=== PATIENT | female | born 1950 | race Two or more races ===

== ENCOUNTER 2022-08-17 15:52 | Inpatient (IN) | payer MEDICARE, OTHER, MEDICAID ==
[~2022-08-17] VITALS: Ht 144.8 cm; Wt 46.7 kg
[2022-08-17] MEDS ORDERED: IPRATROPIUM BROM 0.5 MG/2.5ML INH SOL NEB ONE (16:45)
[2022-08-17] MEDS ORDERED: IOHEXOL 350 MG/ML 100ML IJ ONE ×2 (16:45→19:09)
[2022-08-17] MEDS ORDERED: PIPERACILLIN-TAZOB 3.375GM 100 ML IV ONE (16:45)
[2022-08-17] MEDS ORDERED: DexAMETHasone SOD PHOS 10MG/1ML VIAL INJ IV ONE (16:45)
[2022-08-17] MEDS ORDERED: ALBUTEROL SULF 2.5 MG/0.5ML(0.5%) NEB SOLN NEB ONE (16:45)
[2022-08-17 16:48] LABS: Hemoglobin 15.8 g/dL (12.2-16.2)
[2022-08-17 16:51] LABS: Hematocrit 46.4 % (36.0-46.0); Mean Corpuscular Hemoglobin 32.4 pg (28.0-32.0); Mean Corpuscular Volume 95.2 fL (80.0-100.0); Red Blood Cells 4.87 10^6/uL (4.0-5.20); Red Cell Distribution Width 13.9 % (11.8-14.3)
[2022-08-17 17:06] LABS: White Blood Cell 46.7 10^3/uL (4.4-10.8)
[2022-08-17 17:09] LABS: Albumin 2.2 g/dL (3.4-5.0); Basophils % (manual) 0 (0.0-2.0); Blast Cells 0; Calcium 9.1 mg/dL (8.5-10.1); Eosinophils % (manual) 0 (0-7); Magnesium 2.3 mg/dL (1.6-2.6); Metamyelocytes % 0; Myelocytes % 0; Potassium 4.4 mmol/L (3.5-5.1); Promyelocytes % 0; Reactive Lymphocytes 0
[2022-08-17 17:12] LABS: BUN/Creatinine Ratio 36.5 (10.0-20.0); Bilirubin, Total 0.2 mg/dL (0.2-1.0); Total Protein 7.8 g/dL (6.4-8.2)
[2022-08-17] MEDS ORDERED: FUROSEMIDE 40 MG/4 ML VIAL IV ONE (17:15)
[2022-08-17] MEDS ORDERED: SODIUM CHLORIDE 0.9% 500 ML IV ONE (17:30)
[2022-08-17 18:32] LABS: Band Neutrophils % (manual) 7; Lymphocytes % (manual) 2 (10.0-50.0); Monocytes % (manual) 3 (0-12)
[2022-08-17 19:15] VITALS: BP 148/97
[2022-08-17 20:18] VITALS: BP 145/61
[2022-08-17 21:19] LABS: INR 1.06 (0.9-1.15); Partial Thromboplastin Time 26.8 sec (24.6-33.4)
[2022-08-17 22:15] VITALS: BP 95/53
[2022-08-17] MEDS ORDERED: ACETAMINOPHEN 325 MG TAB PO PRN (22:30)
[2022-08-17] MEDS ORDERED: HYDROcodone-ACET 5/325MG TAB PO PRN (22:30)
[2022-08-17] MEDS ORDERED: NITROGLYCERIN 0.4 MG SL TAB SL PRN (22:30)
[2022-08-17] MEDS ORDERED: ONDANSETRON HCL 4 MG/2 ML VIAL IV PRN (22:30)
[2022-08-17] MEDS ORDERED: MORPHINE SULFATE INJ 2 MG/ml SYRG IV PRN ×2 (22:30)
[2022-08-17] MEDS ORDERED: DOCUSATE SOD 100 MG CAP PO PRN (22:30)
[2022-08-17] MEDS ORDERED: levoFLOXacin 500MG 100 ML IV SCH (22:32)
[2022-08-18 00:15] VITALS: BP 154/61
[2022-08-18 06:03] LABS: Hematocrit 40.2 % (36.0-46.0); Hemoglobin 13.6 g/dL (12.2-16.2); Mean Corpuscular Hemoglobin 32.2 pg (28.0-32.0); Mean Corpuscular Hgb Conc. 33.9 g/dL (32.0-36.0); Mean Corpuscular Volume 94.9 fL (80.0-100.0); Red Blood Cells 4.23 10^6/uL (4.0-5.20); Red Cell Distribution Width 13.7 % (11.8-14.3)
[2022-08-18 06:35] LABS: Albumin 1.8 g/dL (3.4-5.0); Basophils % (manual) 0 (0.0-2.0); Blast Cells 0; Calcium 8.3 mg/dL (8.5-10.1); Eosinophils % (manual) 0 (0-7); Metamyelocytes % 0; Myelocytes % 0; Potassium 4.1 mmol/L (3.5-5.1); Promyelocytes % 0; Reactive Lymphocytes 0; White Blood Cell 37.8 10^3/uL (4.4-10.8)
[2022-08-18 06:40] LABS: BUN/Creatinine Ratio 37.8 (10.0-20.0); Bilirubin, Total 0.2 mg/dL (0.2-1.0); Total Protein 6.5 g/dL (6.4-8.2)
[2022-08-18 07:59] LABS: Band Neutrophils % (manual) 4; Lymphocytes % (manual) 3 (10.0-50.0); Monocytes % (manual) 4 (0-12)
[2022-08-18] MEDS ORDERED: AMLO1TAB22 PO (09:16)
[2022-08-18] MEDS ORDERED: VENL37.588 PO (09:16)
[2022-08-18] MEDS ORDERED: ALPRAZolam 0.5 MG TAB PO PRN (09:30)
[2022-08-18] MEDS: IPRATROPIUM BROM 0.5 MG/2.5ML INH SOL NEB SCH ×4 (10:19→22:36)
[2022-08-18] MEDS: ALBUTEROL SULF 2.5 MG/0.5ML(0.5%) NEB SOLN NEB SCH ×4 (10:19→22:36)
[2022-08-18] MEDS: FAMOTIDINE (10MG/ML) 2ML VL IV SCH (10:50)
[2022-08-18] MEDS: ENOXAPARIN SOD 40 MG/0.4 ML SYRINGE SC SCH (10:50)
[2022-08-18] MEDS: PIPERACILLIN-TAZOB 3.375GM 100 ML IV SCH ×2 (10:51→18:20)
[2022-08-18] MEDS: ZINC SULFATE 220mg CAP or TAB PO SCH (10:51)
[2022-08-18] MEDS: amLODIPine BESYLATE 5 MG TAB PO SCH (10:51)
[2022-08-18] MEDS: MULTIPLE VITAMIN TAB PO SCH (10:52)
[2022-08-18] MEDS: FOLIC ACID 1 MG TAB PO SCH (10:52)
[2022-08-18] MEDS: VENLAFAXINE HCL 37.5mg XR cap PO SCH (10:52)
[2022-08-18] MEDS: ASCORBIC ACID 500 MG TAB PO SCH ×2 (10:52→23:50)
[2022-08-18] MEDS ORDERED: methylPREDNISolone SOD SUCC 40 MG/ML VL IV ONE (12:00)
[2022-08-18] MEDS ORDERED: AZITHROMYCIN 500MG/ 250ML 250 ML IV ONE (12:45)
[2022-08-18] MEDS ORDERED: GABAPENTIN 300 MG CAP PO SCH (14:00)
[2022-08-18] MEDS ORDERED: levoFLOXacin 250MG 50 ML IV SCH (22:30)
[2022-08-18 22:35] VITALS: BP 135/68
[2022-08-18] MEDS: methylPREDNISolone SOD SUCC 40 MG/ML VL IV SCH (23:53)
[2022-08-19] MEDS: PIPERACILLIN-TAZOB 3.375GM 100 ML IV SCH ×3 (02:43→17:19)
[2022-08-19 05:00] VITALS: BP 138/90
[2022-08-19] MEDS: ALBUTEROL SULF 2.5 MG/0.5ML(0.5%) NEB SOLN NEB SCH ×5 (06:36→22:24)
[2022-08-19] MEDS: IPRATROPIUM BROM 0.5 MG/2.5ML INH SOL NEB SCH ×5 (06:36→22:24)
[2022-08-19] MEDS ORDERED: FLUT1AER17 INH (07:35)
[2022-08-19] MEDS ORDERED: OMEP20TA PO (07:36)
[2022-08-19] MEDS ORDERED: NASAGEL (07:46)
[2022-08-19] MEDS ORDERED: FLUT1SPR21 (07:46)
[2022-08-19] MEDS ORDERED: CEL100T PO (07:46)
[2022-08-19] MEDS ORDERED: LACTCAP35 OR (07:50)
[2022-08-19] MEDS ORDERED: CHOL20007 PO (07:50)
[2022-08-19] MEDS ORDERED: MULT-1018 PO (07:50)
[2022-08-19] MEDS ORDERED: GLUC1500 PO (07:50)
[2022-08-19] MEDS ORDERED: CALC1TAB92 PO (07:50)
[2022-08-19] MEDS ORDERED: LORA-622 PO (07:50)
[2022-08-19] MEDS: FAMOTIDINE (10MG/ML) 2ML VL IV SCH (08:44)
[2022-08-19] MEDS: methylPREDNISolone SOD SUCC 40 MG/ML VL IV SCH ×2 (08:44→22:48)
[2022-08-19] MEDS: AZITHROMYCIN 500MG/ 250ML 250 ML IV SCH (08:48)
[2022-08-19] MEDS: ASCORBIC ACID 500 MG TAB PO SCH ×2 (08:49→22:47)
[2022-08-19] MEDS: ENOXAPARIN SOD 40 MG/0.4 ML SYRINGE SC SCH (08:51)
[2022-08-19] MEDS: FOLIC ACID 1 MG TAB PO SCH (08:51)
[2022-08-19] MEDS: ZINC SULFATE 220mg CAP or TAB PO SCH (08:51)
[2022-08-19] MEDS: MULTIPLE VITAMIN TAB PO SCH (08:52)
[2022-08-19] MEDS: VENLAFAXINE HCL 37.5mg XR cap PO SCH (08:52)
[2022-08-19] MEDS: amLODIPine BESYLATE 5 MG TAB PO SCH (08:52)
[2022-08-19 09:00] VITALS: BP 132/68
[2022-08-19 09:45] LABS: Hematocrit 40.7 % (36.0-46.0); Hemoglobin 13.6 g/dL (12.2-16.2); Mean Corpuscular Hemoglobin 32.1 pg (28.0-32.0); Mean Corpuscular Hgb Conc. 33.6 g/dL (32.0-36.0); Mean Corpuscular Volume 95.6 fL (80.0-100.0); Red Blood Cells 4.25 10^6/uL (4.0-5.20); Red Cell Distribution Width 13.5 % (11.8-14.3)
[2022-08-19 09:49] LABS: White Blood Cell 32.6 10^3/uL (4.4-10.8)
[2022-08-19 09:52] LABS: Basophils % (manual) 0 (0.0-2.0); Blast Cells 0; Eosinophils % (manual) 0 (0-7); Metamyelocytes % 0; Myelocytes % 0; Promyelocytes % 0; Reactive Lymphocytes 0
[2022-08-19 10:11] LABS: Potassium 3.9 mmol/L (3.5-5.1)
[2022-08-19 10:18] LABS: Albumin 1.7 g/dL (3.4-5.0); BUN/Creatinine Ratio 34.9 (10.0-20.0); Bilirubin, Total 0.2 mg/dL (0.2-1.0); Calcium 8.5 mg/dL (8.5-10.1); Total Protein 6.4 g/dL (6.4-8.2)
[2022-08-19 10:58] LABS: Band Neutrophils % (manual) 3; Lymphocytes % (manual) 4 (10.0-50.0); Monocytes % (manual) 4 (0-12)
[2022-08-19 13:00] VITALS: BP 120/67
[2022-08-19 16:42] VITALS: BP 129/73
[2022-08-19 22:00] VITALS: BP 119/60
[2022-08-20] MEDS: PIPERACILLIN-TAZOB 3.375GM 100 ML IV SCH ×3 (02:22→17:31)
[2022-08-20 04:46] VITALS: BP 128/67
[2022-08-20] MEDS: IPRATROPIUM BROM 0.5 MG/2.5ML INH SOL NEB SCH ×5 (07:13→22:10)
[2022-08-20] MEDS: ALBUTEROL SULF 2.5 MG/0.5ML(0.5%) NEB SOLN NEB SCH ×5 (07:13→22:10)
[2022-08-20 09:00] VITALS: BP 119/58
[2022-08-20] MEDS: AZITHROMYCIN 500MG/ 250ML 250 ML IV SCH (09:11)
[2022-08-20] MEDS: FAMOTIDINE (10MG/ML) 2ML VL IV SCH (09:11)
[2022-08-20] MEDS: ZINC SULFATE 220mg CAP or TAB PO SCH (09:11)
[2022-08-20] MEDS: methylPREDNISolone SOD SUCC 40 MG/ML VL IV SCH ×2 (09:11→22:02)
[2022-08-20] MEDS: VENLAFAXINE HCL 37.5mg XR cap PO SCH (09:12)
[2022-08-20] MEDS: FOLIC ACID 1 MG TAB PO SCH (09:12)
[2022-08-20] MEDS: MULTIPLE VITAMIN TAB PO SCH (09:12)
[2022-08-20] MEDS: ASCORBIC ACID 500 MG TAB PO SCH ×2 (09:12→22:02)
[2022-08-20] MEDS: ENOXAPARIN SOD 40 MG/0.4 ML SYRINGE SC SCH (09:12)
[2022-08-20] MEDS: amLODIPine BESYLATE 5 MG TAB PO SCH (09:18)
[2022-08-20 13:00] VITALS: BP 124/71
[2022-08-20 17:00] VITALS: BP 131/63
[2022-08-20 22:00] VITALS: BP 132/70
[2022-08-21] MEDS: PIPERACILLIN-TAZOB 3.375GM 100 ML IV SCH ×3 (02:05→18:05)
[2022-08-21 05:00] VITALS: BP 132/85
[2022-08-21] MEDS: ALBUTEROL SULF 2.5 MG/0.5ML(0.5%) NEB SOLN NEB SCH ×5 (06:31→21:37)
[2022-08-21] MEDS: IPRATROPIUM BROM 0.5 MG/2.5ML INH SOL NEB SCH ×5 (06:31→21:37)
[2022-08-21] MEDS: AZITHROMYCIN 500MG/ 250ML 250 ML IV SCH (07:59)
[2022-08-21 08:00] VITALS: BP_SYST 119; BP_SYST 145; BP_DIAS 58; BP_DIAS 62
[2022-08-21 09:49] LABS: Basophils # (auto) 0 10 ^3/uL (0-0.2); Eosinophils # (auto) 0 10 ^3/uL (0-0.8); Hemoglobin 14.2 g/dL (12.2-16.2); Monocytes # (auto) 0.9 10 ^3/uL (0-1.3)
[2022-08-21 09:50] LABS: Basophils % (auto) 0.1 % (0.0-2.0); Hematocrit 42.1 % (36.0-46.0); Lymphocytes % (auto) 5.3 % (10.0-50.0); Mean Corpuscular Hemoglobin 32.3 pg (28.0-32.0); Mean Corpuscular Hgb Conc. 33.7 g/dL (32.0-36.0); Mean Corpuscular Volume 95.9 fL (80.0-100.0); Monocytes % (auto) 4.9 % (0.0-12.0); Neutrophils # (auto) 16.9 10 ^3/uL (1.6-8.6); Neutrophils % (auto) 89.7 % (37.0-80.0); Red Blood Cells 4.39 10^6/uL (4.0-5.20); Red Cell Distribution Width 13.9 % (11.8-14.3); White Blood Cell 18.9 10^3/uL (4.4-10.8)
[2022-08-21] MEDS: methylPREDNISolone SOD SUCC 40 MG/ML VL IV SCH ×2 (09:58→21:38)
[2022-08-21] MEDS: FAMOTIDINE (10MG/ML) 2ML VL IV SCH (09:58)
[2022-08-21] MEDS: NICOTINE 14 MG/24HR TOPICAL PATCH TD SCH (09:58)
[2022-08-21] MEDS: ENOXAPARIN SOD 40 MG/0.4 ML SYRINGE SC SCH (09:59)
[2022-08-21] MEDS: MULTIPLE VITAMIN TAB PO SCH (09:59)
[2022-08-21] MEDS: ASCORBIC ACID 500 MG TAB PO SCH ×2 (09:59→21:39)
[2022-08-21] MEDS: VENLAFAXINE HCL 37.5mg XR cap PO SCH (09:59)
[2022-08-21] MEDS: FOLIC ACID 1 MG TAB PO SCH (09:59)
[2022-08-21] MEDS: amLODIPine BESYLATE 5 MG TAB PO SCH (10:05)
[2022-08-21] MEDS: ZINC SULFATE 220mg CAP or TAB PO SCH (10:07)
[2022-08-21 10:38] VITALS: BP 142/60
[2022-08-21 10:47] LABS: Calcium 9.2 mg/dL (8.5-10.1); Potassium 4.6 mmol/L (3.5-5.1)
[2022-08-21 10:49] LABS: BUN/Creatinine Ratio 36.8 (10.0-20.0)
[2022-08-21 12:00] VITALS: BP 134/81
[2022-08-21 16:00] VITALS: BP 142/71
[2022-08-21 22:00] VITALS: BP 146/76
[2022-08-22] MEDS: PIPERACILLIN-TAZOB 3.375GM 100 ML IV SCH ×3 (02:36→18:07)
[2022-08-22 05:00] VITALS: BP 138/73
[2022-08-22] MEDS: IPRATROPIUM BROM 0.5 MG/2.5ML INH SOL NEB SCH ×5 (06:10→21:54)
[2022-08-22] MEDS: ALBUTEROL SULF 2.5 MG/0.5ML(0.5%) NEB SOLN NEB SCH ×5 (06:10→21:54)
[2022-08-22] MEDS: AZITHROMYCIN 500MG/ 250ML 250 ML IV SCH (08:32)
[2022-08-22 08:54] VITALS: BP 148/70
[2022-08-22] MEDS: ENOXAPARIN SOD 40 MG/0.4 ML SYRINGE SC SCH (09:43)
[2022-08-22] MEDS: FAMOTIDINE (10MG/ML) 2ML VL IV SCH (09:43)
[2022-08-22] MEDS: MULTIPLE VITAMIN TAB PO SCH (09:43)
[2022-08-22] MEDS: ASCORBIC ACID 500 MG TAB PO SCH ×2 (09:43→22:04)
[2022-08-22] MEDS: methylPREDNISolone SOD SUCC 40 MG/ML VL IV SCH ×2 (09:43→22:04)
[2022-08-22] MEDS: VENLAFAXINE HCL 37.5mg XR cap PO SCH (09:44)
[2022-08-22] MEDS: ZINC SULFATE 220mg CAP or TAB PO SCH (09:44)
[2022-08-22] MEDS: FOLIC ACID 1 MG TAB PO SCH (09:44)
[2022-08-22] MEDS: amLODIPine BESYLATE 5 MG TAB PO SCH (09:52)
[2022-08-22] MEDS: NICOTINE 14 MG/24HR TOPICAL PATCH TD SCH (10:00)
[2022-08-22 13:00] VITALS: BP_SYST 137; BP_SYST 148; BP_DIAS 62; BP_DIAS 70
[2022-08-22 16:37] VITALS: BP 136/68
[2022-08-22 22:00] VITALS: BP 139/73
[2022-08-23] MEDS: PIPERACILLIN-TAZOB 3.375GM 100 ML IV SCH ×3 (02:03→18:21)
[2022-08-23 05:00] VITALS: BP 144/79
[2022-08-23] MEDS: ALBUTEROL SULF 2.5 MG/0.5ML(0.5%) NEB SOLN NEB SCH ×5 (06:23→21:53)
[2022-08-23] MEDS: IPRATROPIUM BROM 0.5 MG/2.5ML INH SOL NEB SCH ×5 (06:23→21:53)
[2022-08-23 09:00] VITALS: BP 139/72
[2022-08-23] MEDS: methylPREDNISolone SOD SUCC 40 MG/ML VL IV SCH ×2 (09:33→22:14)
[2022-08-23] MEDS: FAMOTIDINE (10MG/ML) 2ML VL IV SCH (09:33)
[2022-08-23] MEDS: AZITHROMYCIN 500MG/ 250ML 250 ML IV SCH (09:33)
[2022-08-23] MEDS: amLODIPine BESYLATE 5 MG TAB PO SCH (09:34)
[2022-08-23] MEDS: ASCORBIC ACID 500 MG TAB PO SCH ×2 (09:34→22:14)
[2022-08-23] MEDS: FOLIC ACID 1 MG TAB PO SCH (09:34)
[2022-08-23] MEDS: MULTIPLE VITAMIN TAB PO SCH (09:34)
[2022-08-23] MEDS: ZINC SULFATE 220mg CAP or TAB PO SCH (09:34)
[2022-08-23] MEDS: VENLAFAXINE HCL 37.5mg XR cap PO SCH (09:35)
[2022-08-23] MEDS: ENOXAPARIN SOD 40 MG/0.4 ML SYRINGE SC SCH (09:36)
[2022-08-23] MEDS: NICOTINE 14 MG/24HR TOPICAL PATCH TD SCH (09:36)
[2022-08-23 11:52] LABS: Eosinophils # (auto) 0 10 ^3/uL (0-0.8); Hemoglobin 14.9 g/dL (12.2-16.2); Monocytes # (auto) 1.3 10 ^3/uL (0-1.3)
[2022-08-23 11:57] LABS: Basophils # (auto) 0 10 ^3/uL (0-0.2); Basophils % (auto) 0.1 % (0.0-2.0); Hematocrit 44.2 % (36.0-46.0); Lymphocytes % (auto) 4.7 % (10.0-50.0); Mean Corpuscular Hemoglobin 32.4 pg (28.0-32.0); Mean Corpuscular Hgb Conc. 33.8 g/dL (32.0-36.0); Mean Corpuscular Volume 95.8 fL (80.0-100.0); Monocytes % (auto) 6.2 % (0.0-12.0); Neutrophils # (auto) 19.2 10 ^3/uL (1.6-8.6); Red Blood Cells 4.62 10^6/uL (4.0-5.20); Red Cell Distribution Width 13.8 % (11.8-14.3); White Blood Cell 21.5 10^3/uL (4.4-10.8)
[2022-08-23 11:58] LABS: Albumin 2.3 g/dL (3.4-5.0); Calcium 9.1 mg/dL (8.5-10.1)
[2022-08-23 12:06] LABS: Bilirubin, Total 0.3 mg/dL (0.2-1.0); Potassium 4.3 mmol/L (3.5-5.1)
[2022-08-23 12:38] LABS: BUN/Creatinine Ratio 28.3 (10.0-20.0)
[2022-08-23 12:45] LABS: Hepatitis B Core IgM Negative
[2022-08-23 12:46] LABS: Hepatitis A Ab IgM Negative; Hepatitis C Antibody Negative (Negative)
[2022-08-23 13:00] VITALS: BP 135/71
[2022-08-23 17:00] VITALS: BP 142/77
[2022-08-23 21:47] VITALS: BP 138/72
[2022-08-24] MEDS: PIPERACILLIN-TAZOB 3.375GM 100 ML IV SCH ×2 (01:56→10:17)
[2022-08-24 04:46] VITALS: BP 143/65
[2022-08-24] MEDS: ALBUTEROL SULF 2.5 MG/0.5ML(0.5%) NEB SOLN NEB SCH ×3 (06:20→14:03)
[2022-08-24] MEDS: IPRATROPIUM BROM 0.5 MG/2.5ML INH SOL NEB SCH ×3 (06:20→14:03)
[2022-08-24 08:45] VITALS: BP 140/54
[2022-08-24] MEDS: AZITHROMYCIN 500MG/ 250ML 250 ML IV SCH (08:48)
[2022-08-24] MEDS: NICOTINE 14 MG/24HR TOPICAL PATCH TD SCH (10:00)
[2022-08-24] MEDS: ASCORBIC ACID 500 MG TAB PO SCH (10:17)
[2022-08-24] MEDS: ENOXAPARIN SOD 40 MG/0.4 ML SYRINGE SC SCH (10:17)
[2022-08-24] MEDS: FAMOTIDINE (10MG/ML) 2ML VL IV SCH (10:17)
[2022-08-24] MEDS: methylPREDNISolone SOD SUCC 40 MG/ML VL IV SCH (10:17)
[2022-08-24] MEDS: FOLIC ACID 1 MG TAB PO SCH (10:17)
[2022-08-24] MEDS: MULTIPLE VITAMIN TAB PO SCH (10:18)
[2022-08-24] MEDS: amLODIPine BESYLATE 5 MG TAB PO SCH (10:18)
[2022-08-24] MEDS: VENLAFAXINE HCL 37.5mg XR cap PO SCH (10:18)
[2022-08-24] MEDS: ZINC SULFATE 220mg CAP or TAB PO SCH (10:18)
[2022-08-24 10:35] VITALS: BP 140/54
[2022-08-24 12:30] VITALS: BP 148/70
[2022-08-24] MEDS ORDERED: AZIT500T66 PO (14:02)
[2022-08-24 16:45] VITALS: BP 140/54
== END 2022-08-24 17:30 | disposition home or self-care (01) | DRG 871 ==
LOC: ER 15:52 → TELE 22:21 → TELE-EAST 08-18 21:20
PROVIDERS: ADMIT Internal Medicine; ATTEND Internal Medicine
PROC: 5A09357 Assistance with Respiratory Ventilation, Less than 24 Consecutive Hours, Continuous Positive Airway Pressure (ICD-10-PCS; principal; 2022-08-17)
DX: A41.9 Sepsis, unspecified organism (principal); J18.9 Pneumonia, unspecified organism; J96.01 Acute respiratory failure with hypoxia; E87.1 Hypo-osmolality and hyponatremia; F10.10 Alcohol abuse, uncomplicated; Z20.822 Contact with and (suspected) exposure to COVID-19; Y90.9 Presence of alcohol in blood, level not specified; I10 Essential (primary) hypertension; F17.210 Nicotine dependence, cigarettes, uncomplicated; R79.89 Other specified abnormal findings of blood chemistry; J43.9 Emphysema, unspecified; Z85.3 Personal history of malignant neoplasm of breast; Z90.13 Acquired absence of bilateral breasts and nipples; Z91.018 Allergy to other foods; Z82.5 Family history of asthma and other chronic lower respiratory diseases
CPT/HCPCS: 36415; 36600; 71045; 71275; 76705; 80048; 80053; 80074; 80320; 82805; 83605; 83735; 83880; 84484; 85007; 85025; 85027; 85379; 85610; 85730; 87040; 87070; 87081; 87205; 87278; 87426; 87804; 93005; 93970; 94640; 94660; 96365; 96375; 99291; G0378; J1100; J2543; J3490

== ENCOUNTER → 2022-11-09 | Outpatient (CLI) | payer MEDICARE, MEDICAID ==
[~2022-11-09] MED LIST: ALBUTEROL SULF 2.5 MG/0.5ML(0.5%) NEB SOLN ONE; AMLO1TAB22 PO; AZIT500T66 PO; CALC1TAB92 PO; CEL100T PO; CHOL20007 PO; FLUT1AER17 INH; FLUT1SPR21; GLUC1500 PO; LACTCAP35 OR; LORA-622 PO; MULT-1018 PO; NASAGEL; OMEP20TA PO; VENL37.588 PO
== END | disposition home or self-care (01) ==
LOC: RT 12:36
PROVIDERS: ATTEND Internal Medicine Pulmonary Disease
DX: J44.9 Chronic obstructive pulmonary disease, unspecified (principal); R06.09 Other forms of dyspnea
CPT/HCPCS: 94060; 94618; 94727; 94729

== ENCOUNTER → 2023-02-28 | Outpatient (CLI) | payer MEDICARE, MEDICAID ==
[~2023-02-28] MED LIST changes: -ALBUTEROL SULF 2.5 MG/0.5ML(0.5%) NEB SOLN ONE
[2023-02-28 14:32] LABS: Basophils # (auto) 0.1 10 ^3/uL (0-0.2); Basophils % (auto) 0.7 % (0.0-2.0); Eosinophils # (auto) 0.2 10 ^3/uL (0-0.8); Eosinophils % (auto) 1.4 % (0.0-7.0); Hematocrit 42.7 % (36.0-46.0); Hemoglobin 14.4 g/dL (12.2-16.2); Lymphocytes # (auto) 2.5 10 ^3/uL (0.4-5.4); Lymphocytes % (auto) 21.7 % (10.0-50.0); Mean Corpuscular Hemoglobin 32.2 pg (28.0-32.0); Mean Corpuscular Hgb Conc. 33.8 g/dL (32.0-36.0); Mean Corpuscular Volume 95.3 fL (80.0-100.0); Monocytes # (auto) 0.9 10 ^3/uL (0-1.3); Monocytes % (auto) 7.7 % (0.0-12.0); Neutrophils # (auto) 8.1 10 ^3/uL (1.6-8.6); Neutrophils % (auto) 68.5 % (37.0-80.0); Red Blood Cells 4.48 10^6/uL (4.0-5.20); Red Cell Distribution Width 14.6 % (11.8-14.3); White Blood Cell 11.8 10^3/uL (4.4-10.8)
[2023-02-28 14:49] LABS: INR 0.99 (0.9-1.15); Partial Thromboplastin Time 27.4 SEC (24.5-34.5); Prothrombin Time 10.4 sec (9.3-11.8)
[2023-02-28 15:18] LABS: Alanine Aminotransferase 30 U/L (7-40); Albumin 4.6 g/dL (3.2-4.8); Alkaline Phosphatase 111 U/L (46-116); Anion Gap 6 (5-15); Aspartate Aminotransferase 20 U/L (13-40); BUN/Creatinine Ratio 17.1 (10.0-20.0); Blood Urea Nitrogen 12 mg/dL (9-23); Calcium 9.8 mg/dL (8.5-10.1); Carbon Dioxide 31 mmol/L (20-30); Chloride 99 mmol/L (98-107); Glucose 139 mg/dL (74-106); Potassium 4.2 mmol/L (3.5-5.1); Sodium 136 mmol/L (136-145)
[2023-02-28 15:19] LABS: Bilirubin, Total 0.4 mg/dL (0.2-1.0); Total Protein 7.6 g/dL (5.7-8.2)
== END | disposition home or self-care (01) ==
LOC: LAB 14:06
PROVIDERS: ATTEND Internal Medicine Pulmonary Disease
DX: Z01.812 Encounter for preprocedural laboratory examination (principal); J44.9 Chronic obstructive pulmonary disease, unspecified; J96.11 Chronic respiratory failure with hypoxia; R91.1 Solitary pulmonary nodule
CPT/HCPCS: 36415; 80053; 85025; 85610; 85730

== ENCOUNTER → 2023-03-02 | Outpatient (CLI) | payer MEDICARE, MEDICAID ==
[~2023-03-02] VITALS: Ht 149.9 cm; Wt 49.0 kg
[~2023-03-02] MED LIST changes: +FLUMAZENIL 0.1 MG/ML INJ 10ML MDV IV ONE; +LIDOCAINE 2%HCL (LOCAL ANESTH.) INJ 10ml MDV ONE; +MIDAZOLAM HCL 2MG/2ML 2ml VIAL (1mg/ml) IV ONE; +MIDAZOLAM HCL 2MG/2ML 2ml VIAL (1mg/ml) ONE; +NALOXONE HCL 1MG/ML 2ML SYRINGE ONE; +fentaNYL CITRATE 100 MCG/2 ML VL IV ONE; +fentaNYL CITRATE 100 MCG/2 ML VL ONE
== END | disposition home or self-care (01) ==
LOC: XYW 08:39
PROVIDERS: ATTEND Internal Medicine Pulmonary Disease
DX: R91.1 Solitary pulmonary nodule (principal); Z85.118 Personal history of other malignant neoplasm of bronchus and lung
CPT/HCPCS: 10005; 32408; 71045; 71250; 77012; J2001; J2250; J2310; J3010